=== PATIENT | female | born 1990 | race Caucasian/White ===

== ENCOUNTER 2018-08-02 14:17 | Emergency (ER) | payer OTHER ==
[~2018-08-02] VITALS: Ht 157.5 cm; Wt 56.7 kg
[2018-08-02] MEDS ORDERED: MEDROLPACK PO (16:49)
== END 2018-08-02 17:50 | disposition home or self-care (01) ==
LOC: ER 14:17
DX: L30.8 Other specified dermatitis (principal)

== ENCOUNTER 2021-08-20 08:42 | Outpatient (CLI) | payer OTHER ==
[~2021-08-20 08:42] MED LIST: MEDROLPACK PO
== END 2021-08-20 09:10 | disposition home or self-care (01) ==
LOC: RX STUDY 08:42 → EDBD 08:42 → RX STUDY 09:10
PROVIDERS: ATTEND Specialist
DX: N89.8 Other specified noninflammatory disorders of vagina (principal)